=== PATIENT | female | born 1985 | race Hispanic/Latino ===

== ENCOUNTER 2017-06-04 18:21 | Emergency (ER) | payer BC, SELFPAY ==
[~2017-06-04 18:21] MED LIST: Iopamidol 370 76% 100 ML VIAL ONE
[2017-06-04] MEDS ORDERED: Ondansetron HCl/PF 4 MG/2 ML Vial ONE (18:40)
[2017-06-04 18:47] LABS: #Basophils 0.1 thou/uL (0.0-0.2); #Eosinphils 0.1 thou/uL (0.0-0.7); #Lymphocytes 1.8 thou/uL (1.20-3.40); #Monocytes 0.6 thou/uL (0.11-0.59); #Neutrophils 8.9 thou/uL (1.40-6.50); %Basophils 0.6 % (0.0-1.0); %Eosinophils 1.3 % (0.0-10.0); %Lymphocytes 15.7 % (21.0-51.0); %Monocytes 5.3 % (0.0-10.0); %Neutrophils 77.1 % (42.0-75.0); Hemoglobin 13.6 g/dL (12.0-16.0); Mean Corpuscular Volume 96.8 fl (81.0-99.0); Mean Platelet Volume 8.4 fL (7.4-10.4); Platelet Count 229 thou/uL (130-400); RBC Distribution Width 11.8 % (11.5-14.5); Red Blood Cell (RBC) Count 4.39 mill/uL (4.20-5.40); White Blood Cell (WBC) Count 11.5 thou/uL (4.8-10.8)
[2017-06-04] MEDS ORDERED: Sodium Chloride 0.9% 1,000 ML ONE (18:50)
[2017-06-04 19:02] LABS: ALT (SGPT) 127 U/L (8-55); AST (SGOT) 250 U/L (5-34); Albumin 4.5 g/dL (3.5-5.0); Alkaline Phosphatase 99 U/L (40-150); Anion Gap 17 mmol/L (10-20); BUN (Urea Nitrogen) 14 mg/dL (7.0-18.7); Bilirubin, Total 1.3 mg/dL (0.2-1.2); Calc. Creatinine Clearance 0 mL/min (70-130); Calcium 9.5 mg/dL (7.8-10.44); Carbon Dioxide 22 mmol/L (22-29); Estimated GFR-MDRD 64; Globulin 3.5 g/dL (2.4-3.5); Glucose 131 mg/dL (70-105); Lipase 55 U/L (8-78); Potassium 3.9 mmol/L (3.5-5.1)
[2017-06-04 19:12] LABS: Blood, Urine Large (Negative); Clarity Clear (Clear); Glucose, Urine (Dipstick) Negative (Negative); Leukocyte Negative (Negative); Nitrite Negative (Negative); Protein, Urine (Dipstick) 30 mg/dL (Neg-Trace); pH, Urine 5.5 (5.0-9.0)
[2017-06-04 19:15] LABS: Bilirubin Negative (Negative); Icto Negative (Negative); Specific Gravity, Urine 1.024 (1.005-1.030)
[2017-06-04 19:16] LABS: Pregnancy Test - Urine (BHCG) Negative (Negative); Pregu Control Background? CLEAR/WHITE (CLR/WHITE); Pregu Control Bar Appear? YES (CONTROL BAR); Specific Gravity 1.029 (1.002-1.036)
[2017-06-04 19:20] LABS: Chloride 106 mmol/L (98-107); Sodium 141 mmol/L (136-145)
[2017-06-04 19:23] LABS: Bacteria/HPF Rare-Few HPF (None Seen); WBC/HPF 0-3 HPF (0-3)
--- NOTE | 2017-06-04 20:10 | CT ---
CT OF ABDOMEN AND PELVIS PERFORMED WITH INTRAVENOUS CONTRAST ENHANCEMENT: 06/04/17 HISTORY: Right upper quadrant pain. The lung bases are clear of any infiltrative process. The liver and spleen are normal in size. There is some minimal periportal edema change noted within the liver. This can have multiple etiologies. The gallbladder is slightly distended with questionabl e wall thickening. Ultrasound would be suggestive for further assessment if indicated. The pancreas region appears unremarkable. The extrahepatic bile duct is borderline prominent but I do not see any signs of a ductal calculus. Postoperative changes of the stomach are noted. Right and left adrenal glands and right and left kidneys are normal in size. Punctate nonobstructing left renal calculus is present. 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 The append ix is normal in size and retrocecal in location. There is no significant periaortic or mesenteric ad enopathy. CT OF PELVIS PERFORMED WITH CONTRAST ENHANCEMENT: There is follicles seen involving the adnexal regions. There is no evidence of any significant adeno susan. No free fluid. IMPRESSION: 1. Some mild periportal edema which can have various causes. The gallbladder is distended. No d efinitive stones. It may be helpful to obtain ultrasound for evaluation of the gallbladder. 2. Punctate nonobstructing left renal calculus. 3. Normal appendix. POS: [facility]
[2017-06-04] MEDS ORDERED: Piperacillin/Tazobactam 3.375 GM VIAL ONE (20:11)
[2017-06-04] MEDS ORDERED: Sodium Chloride 0.9% 100 ML ONE (20:11)
== END 2017-06-04 20:41 | disposition short-term general hospital (02) ==
LOC: NAV ERS 18:21
DX: K80.00 Calculus of gallbladder with acute cholecystitis without obstruction (principal); D72.829 Elevated white blood cell count, unspecified; N28.9 Disorder of kidney and ureter, unspecified; R60.0 Localized edema; I10 Essential (primary) hypertension
CPT/HCPCS: 74177; 80053; 81003; 81015; 81025; 83690; 85025; 96361; 96374; 96375; J2270; J2405; J2543; J7050